=== PATIENT | male | born 1970 | race Caucasian/White ===

== ENCOUNTER 2023-08-13 11:26 | Emergency (ER) | payer OTHER, SELFPAY ==
[2023-08-13 11:41] VITALS: BP 124/92; PULSE 95; RESP 18; TEMP 36.4; O2SAT 100
[2023-08-13 11:45] VITALS: BP 124/92; PULSE 95; RESP 18; TEMP 36.4; O2SAT 100
--- NOTE | 2023-08-13 12:11 | ED.BACK ---
HPI - Back Pain/Injury General Chief Complaint: Back Pain/Injury Stated Complaint: lower back pain Source: patient Mode of arrival: ambulatory Limitations: no limitations History of Present Illness HPI Narrative: 53-year-old male presents to [facility] with complaints of pain to his right lower back for the past 8 days. Patient reports that he was playing golf 8 days ago with his family when he felt a twinge to his right lower back. Patient reports that he has been taking few doses of ibuprofen, applying heat and ice with little relief. Patient reports that he then had to drive to [place] this week for work. Patient denies bowel or bladder problems, fever, body aches chills. MD elicited complaint: back pain Onset (ago): day(s) (8) Quality: aching Location: right lower back Exacerbating factors: movement and lifting Context: playing sports (Golf) Treatments prior to arrival: cold therapy, heat therapy and NSAIDS Work related injury: No Related Data Allergies Allergy/AdvReac Type Severity Reaction Status Date / Time No Known Allergies Allergy Verified 08/13/23 11:44 Review of Systems Constitutional: Constitutional: Denies fatigue, Denies fever(s) and Denies weakness ENT: Denies dizziness and Denies nasal congestion Cardiovascular: Cardiovascular: Denies chest pain Respiratory: Respiratory: Denies cough, Denies dyspnea and Denies wheezing Gastrointestinal: Gastrointestinal: Denies diarrhea, Denies nausea and Denies vomiting Musculoskeletal: Musculoskeletal: Reports back pain, Denies myalgias, Denies arthralgias, Denies joint swelling and Denies muscle cramps Integumentary/Breasts: Skin/Breast: Denies rash Neurologic: Denies dizziness, Denies syncope and Denies headache(s) [facility] Past Medical History Medical History FH: colon cancer GERD (gastroesophageal reflux disease) Seasonal allergies Social History Social History Smoking status: Never smoker Alcohol intake: current Substance use: never Substance use type: does not use Living arrangements: with family Occupation/Education: occupation 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 There is no relevant family history pertinent to the presenting complaint. Exam Const: General: healthy appearing, no acute distress and alert Nutritional Appearance: well nourished and obese Orientation/consciousness: patient oriented x3 Limitations: no limitations HENMT: Head: normal to inspection Eyes: Conjunctivae: conjunctivae normal Neck: Neck: normal visual inspection Resp: Effort & Inspection: normal respiratory effort and not labored Auscultation: clear to auscultation bilaterally, no crackles, no rales, no rhonchi and no wheezes Cardio: Rate: regular rate Rhythm: regular rhythm Heart sounds: no murmurs : General: Yes no CVA tenderness Back/Spine/Pelvis: Back: no CVA tenderness Other: Pain noted to right lower back on palpation. There is no spinal tenderness noted. Gait is within normal limits. Patient is able to move extremities with no difficulties. There is no area of swelling, erythema or open wounds noted. Skin: General skin exam: normal color Rashes: no rashes Wounds: no wounds Neuro: General: patient oriented x3, moves all extremities and no meningeal signs Gait exam (Neuro): Normal gait present Extrem: General: normal to inspection Psych: Mental Status: mental status grossly normal Affect: normal affect Attitude: cooperative Course Course Level of Care: Express Care Visit Vital Signs Vital signs: Vital Signs Temperature 36.4 C 08/13/23 11:41 Pulse Rate 95 08/13/23 11:41 Respiratory Rate 18 08/13/23 11:41 Blood Pressure 124/92 H 08/13/23 11:41
== END 2023-08-13 12:24 | disposition home or self-care (01) ==
PROVIDERS: Emergency Provider Nurse Practitioner Family
DX: M54.50 Low back pain, unspecified (principal); K21.9 Gastro-esophageal reflux disease without esophagitis
CPT/HCPCS: 81003; 99213; G0463

== ENCOUNTER 2024-01-30 13:10 | Outpatient (CLI) | payer OTHER, SELFPAY ==
--- NOTE | ~2024-01-30 | CT_ITS ---
CT abdomen pelvis wo con Ordering provider: DANNY Paul History: 53 years Male with . R10.9 - Unspecified abdominal pain . Comparison: None. Technique: CT abdomen and pelvis without IV and without oral contrast. Automated exposure control and iterative reconstruction technique were employed. The dose-length product was 1029.69 mGy-cm. Findings: VISUALIZED LOWER CHEST: Normal. UPPER ABDOMINAL ORGANS: Liver: Normal. Gallbladder: Normal. Spleen: Normal. Stomach/duodenum: Normal. Pancreas: Normal. Adrenals: Normal. Kidneys: Normal. PELVIC ORGANS: The bladder is underfilled. BOWEL AND MESENTERY: Colon: No evidence of diverticulitis. A material is seen in the right side of the colon. Normal appen krunal. Small Bowel: Normal. No obstruction. Peritoneum/mesentery: No free air or free fluid. No mesenteric lymphadenopathy. RETROPERITONEUM: Mild atheromatous disease of the abdominal aorta. No retroperitoneal lymphadenopat hy. MUSCULOSKELETAL: Superficial soft tissues: Fat containing small umbilical hernia. The superficial soft tissues are nor mal. Bones: Age appropriate degenerative changes of the spine. IMPRESSION: 1. No evidence of appendicitis, diverticulitis or intestinal obstruction. 2. Constipation. Reviewed, dictated and finalized at location A. 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
== END 2024-01-30 13:11 | disposition home or self-care (01) ==
PROVIDERS: PCP Nurse Practitioner Family; Visit Provider Nurse Practitioner Family
DX: K59.00 Constipation, unspecified (principal); R31.9 Hematuria, unspecified; Z87.442 Personal history of urinary calculi
CPT/HCPCS: 74176